=== PATIENT | male | born 1975 | race Caucasian/White ===

== ENCOUNTER → 2024-02-18 | Outpatient (CLI) | payer BC, SELFPAY ==
[2024-02-18 10:00] LABS: Alanine Aminotransferase 13 U/L (10-49); Albumin, Serum 4.5 gm/dL (3.5-5.0); Albumin/Globulin Ratio 1.6 (1.2-2.2); Alkaline Phosphatase 109 U/L (46-116); Anion Gap 6 (7-16); Aspartate Amino Transferase 16 U/L (0-34); BUN/Creatinine Ratio 15 Ratio (12-20); Blood Urea Nitrogen 17 mg/dL (9-23); Calcium 10.4 mg/dL (8.3-10.6); Calcium (Corrected) 10.4 mg/dL (8.5-10.1); Carbon Dioxide 30.3 mMol/L (20.0-31.0); Chloride 104 mMol/L (98-107); Creatinine (Component) 1.1 mg/dL (0.6-1.3); Globulin 2.9 gm/dL (2.3-3.5); Glucose 263 mg/dL (74-106); Osmolality,Calculated 289 (275-295); Potassium 4.9 mMol/L (3.4-5.1); Sodium 140 mMol/L (136-145); Total Protein 7.4 gm/dL (5.7-8.2); eGFR > 60 See Note
[2024-02-18 14:59] LABS: Bilirubin,Total 0.4 mg/dL (0.3-1.2)
[2024-02-18 16:06] LABS: Glucose Estimated Average 223 mg/dL (80-131); Hemoglobin A1C 9.4 % Hgb (4.8-6.0)
== END | disposition home or self-care (01) ==
LOC: COPL 08:01
PROVIDERS: PCP Family Medicine; Referring Provider Registered Nurse; Visit Provider Registered Nurse
DX: E11.65 Type 2 diabetes mellitus with hyperglycemia (principal)
CPT/HCPCS: 36415; 80053; 83036

== ENCOUNTER 2024-04-25 09:30 | Day surgery (SDC) | payer BC, SELFPAY ==
[2024-04-24 15:31] VITALS: BMI 33.3
[2024-04-25] VITALS (14 sets, daily range): BP systolic 82–121; BP diastolic 57–82; PULSE 68–96; RESP 16–24; TEMP 36.4–36.6; O2SAT 91–100; BMI 31.8
[2024-04-25] MEDS: DiphenhydrAMINE INJ 50 MG/ML VIAL 25 MG IV (10:48)
[2024-04-25] MEDS: fentaNYL CIT INJ 50 mCg/ML AMP 2ML (ASD USE ONLY) IV (11:02)
[2024-04-25] MEDS: MIDAZOLAM INJ 1 MG/ML VIAL 2 ML (ASD USE ONLY) 2 MG IV (11:02)
[2024-04-25] MEDS: SODIUM CHLORIDE 0.9% 500 ML 500 ML 999 ML IV (11:27)
== END 2024-04-25 12:30 | disposition home or self-care (01) ==
PROVIDERS: PCP Registered Nurse; Referring Provider Internal Medicine Gastroenterology; Visit Provider Internal Medicine Gastroenterology
PROC: 0DBE8ZX Excision of Large Intestine, Via Natural or Artificial Opening Endoscopic, Diagnostic (ICD-10-PCS; CPT 45380; principal; 2024-04-25 11:30)
DX: Z12.11 Encounter for screening for malignant neoplasm of colon (principal); K64.8 Other hemorrhoids; K57.30 Diverticulosis of large intestine without perforation or abscess without bleeding; K63.5 Polyp of colon; D17.5 Benign lipomatous neoplasm of intra-abdominal organs
CPT/HCPCS: 45385; 45381; A4649; J1200; J2250; J3010; J7040

== ENCOUNTER → 2024-05-26 | Outpatient (CLI) | payer BC, SELFPAY ==
[2024-05-26 11:16] LABS: Glucose Estimated Average 209 mg/dL (80-131); Hemoglobin A1C 8.9 % Hgb (4.8-6.0)
[2024-05-26 11:44] LABS: Alanine Aminotransferase 26 U/L (10-49); Albumin, Serum 4.3 gm/dL (3.5-5.0); Albumin/Globulin Ratio 1.9 (1.2-2.2); Alkaline Phosphatase 106 U/L (46-116); Anion Gap 8 (7-16); Aspartate Amino Transferase 18 U/L (0-34); BUN/Creatinine Ratio 11 Ratio (12-20); Bilirubin,Total 0.4 mg/dL (0.3-1.2); Blood Urea Nitrogen 13 mg/dL (9-23); Calcium 9.8 mg/dL (8.3-10.6); Calcium (Corrected) 9.8 mg/dL (8.5-10.1); Carbon Dioxide 30.3 mMol/L (20.0-31.0); Chloride 102 mMol/L (98-107); Creatinine (Component) 1.2 mg/dL (0.6-1.3); Globulin 2.3 gm/dL (2.3-3.5); Glucose 207 mg/dL (74-106); Osmolality,Calculated 285 (275-295); Potassium 4.2 mMol/L (3.4-5.1); Sodium 140 mMol/L (136-145); Total Protein 6.6 gm/dL (5.7-8.2); eGFR > 60 See Note
== END | disposition home or self-care (01) ==
LOC: COPL 10:26
PROVIDERS: PCP Family Medicine; Referring Provider Registered Nurse; Visit Provider Registered Nurse
DX: E11.65 Type 2 diabetes mellitus with hyperglycemia (principal)
CPT/HCPCS: 36415; 80053; 83036

== ENCOUNTER → 2024-09-18 | Outpatient (CLI) | payer BC, SELFPAY ==
[2024-09-18 12:42] LABS: Glucose Estimated Average 183 mg/dL (80-131)
[2024-09-18 12:45] LABS: Alanine Aminotransferase 27 U/L (10-49); Albumin, Serum 4.2 gm/dL (3.5-5.0); Albumin/Globulin Ratio 1.8 (1.2-2.2); Alkaline Phosphatase 84 U/L (46-116); Anion Gap 8 (7-16); Aspartate Amino Transferase 24 U/L (0-34); BUN/Creatinine Ratio 13 Ratio (12-20); Bilirubin,Total 0.3 mg/dL (0.3-1.2); Blood Urea Nitrogen 13 mg/dL (9-23); Calcium 9.8 mg/dL (8.3-10.6); Calcium (Corrected) 9.8 mg/dL (8.5-10.1); Carbon Dioxide 28.7 mMol/L (20.0-31.0); Chloride 102 mMol/L (98-107); Globulin 2.4 gm/dL (2.3-3.5); Glucose 172 mg/dL (74-106); Osmolality,Calculated 281 (275-295); Potassium 4.5 mMol/L (3.4-5.1); Sodium 139 mMol/L (136-145); Total Protein 6.6 gm/dL (5.7-8.2); eGFR > 60 See Note
== END | disposition home or self-care (01) ==
PROVIDERS: PCP Family Medicine; Referring Provider Registered Nurse; Visit Provider Registered Nurse
DX: E11.65 Type 2 diabetes mellitus with hyperglycemia (principal)
CPT/HCPCS: 36415; 80053; 83036

== ENCOUNTER → 2024-12-19 | Outpatient (CLI) | payer BC, SELFPAY ==
[2024-12-19 17:06] LABS: Glucose Estimated Average 183 mg/dL (80-131); Hemoglobin A1C 8.0 % Hgb (4.8-6.0)
[2024-12-19 17:29] LABS: Alanine Aminotransferase 43 U/L (10-49); Albumin, Serum 4.4 gm/dL (3.5-5.0); Alkaline Phosphatase 100 U/L (46-116); Aspartate Amino Transferase 26 U/L (0-34); Bilirubin,Direct < 0.1 mg/dL (0.0-0.3); Bilirubin,Total 0.3 mg/dL (0.3-1.2); Total Protein 7.2 gm/dL (5.7-8.2)
== END | disposition home or self-care (01) ==
LOC: COPL 15:38
PROVIDERS: PCP Registered Nurse; Referring Provider Registered Nurse; Visit Provider Registered Nurse
DX: B35.1 Tinea unguium (principal)
CPT/HCPCS: 36415; 80076; 83036

== ENCOUNTER 2025-02-14 09:30 | Day surgery (SDC) | payer BC, SELFPAY ==
[2025-02-14] VITALS (9 sets, daily range): BP systolic 102–140; BP diastolic 65–94; PULSE 62–88; RESP 13–19; TEMP 36.4; O2SAT 94–99; BMI 32.4
[2025-02-14] MEDS: SODIUM CHLORIDE 0.9% 500 ML 500 ML 20 ML IV (11:33)
[2025-02-14] MEDS: MIDAZOLAM INJ 1 MG/ML VIAL 2 ML (ASD USE ONLY) 2 MG IVP (11:37)
[2025-02-14] MEDS: fentaNYL CIT INJ 50 mCg/ML AMP 2ML (ASD USE ONLY) IVP (11:37)
== END 2025-02-14 12:40 | disposition home or self-care (01) ==
PROVIDERS: PCP Registered Nurse; Referring Provider Specialist; Visit Provider Specialist
PROC: 0DBE8ZX Excision of Large Intestine, Via Natural or Artificial Opening Endoscopic, Diagnostic (ICD-10-PCS; CPT 45380; principal; 2025-02-14 10:30)
DX: Z12.11 Encounter for screening for malignant neoplasm of colon (principal); K64.1 Second degree hemorrhoids; K57.30 Diverticulosis of large intestine without perforation or abscess without bleeding
CPT/HCPCS: 45378; J1200; J2250; J3010; J7999

== ENCOUNTER → 2025-03-15 | Outpatient (CLI) | payer BC, SELFPAY ==
[2025-03-15 14:23] LABS: Glucose Estimated Average 206 mg/dL (80-131); Hemoglobin A1C 8.8 % Hgb (4.8-6.0)
[2025-03-15 14:30] LABS: Alanine Aminotransferase 25 U/L (10-49); Albumin, Serum 4.5 gm/dL (3.5-5.0); Alkaline Phosphatase 99 U/L (46-116); Aspartate Amino Transferase 24 U/L (0-34); Bilirubin,Direct 0.2 mg/dL (0.0-0.3); Bilirubin,Total 0.5 mg/dL (0.3-1.2); Total Protein 7.4 gm/dL (5.7-8.2)
== END | disposition home or self-care (01) ==
LOC: COPL 12:54
PROVIDERS: PCP Family Medicine; Referring Provider Registered Nurse; Visit Provider Registered Nurse
DX: B35.1 Tinea unguium (principal)
CPT/HCPCS: 36415; 80076; 83036